=== PATIENT | male | born 1990 | race Caucasian/White ===

== ENCOUNTER 2018-04-13 12:14 | Observation (INO) | payer OTHER ==
[2018-04-13 12:18] VITALS: BMI 20.9
[2018-04-13 13:01] LABS: BASO # 0.2 K/uL (0.0-0.2); EOS # 0.2 K/uL (0.0-0.7); EOS % 2.4 % (0.0-4.0); LYMPH # 3.7 K/uL (1.0-4.3); MEAN CELL VOLUME 82.4 fL (80.0-94.0); MEAN CORPUSCULAR HEMOGLOBIN 27.8 pg (27.0-31.0); MEAN CORPUSCULAR HGB CONC 33.7 g/dL (33.0-37.0); MEAN PLATELET VOLUME 9.6 fL (7.2-11.7); MONO # 0.5 K/uL (0.0-0.8); MONO % 6.5 % (0.0-10.0); NEUT # 3.7 K/uL (1.8-7.0); NEUT % 44.1 % (50.0-75.0); RBC 5.39 Mil/uL (4.40-5.90); RED CELL DISTRIBUTION WIDTH 12.9 % (11.5-14.5); WHITE BLOOD COUNT 8.3 K/uL (4.8-10.8)
[2018-04-13 13:15] LABS: ALB/GLOB RATIO 1.6 (1.0-2.1); ALBUMIN 4.9 g/dL (3.5-5.0); ALT/SGPT 51 U/L (21-72); AST/SGOT 39 U/L (17-59); BLOOD UREA NITROGEN 16 mg/dL (9-20); CALCIUM 9.7 mg/dl (8.6-10.4); GFR NON-AFRICAN AMERICAN > 60
--- NOTE | 2018-04-13 13:17 | C.PDOC ---
History Of Present Illness 27 y/o male presents to ED s/p seizure like activity witnessed by friends prior to arrival. As per friends patient was heating up food and started to have trouble speaking, started shaking and foaming from mouth. Patient foaming and shaking on floor that lasted 5 minutes followed by patient being confused for another 10 minutes. At ED patient is at Postictal stage and denies substance abuse, bowel/bladder incontinence, tongue biting or any other complaints at this time. Time Seen by Provider: 04/13/18 12:21 Chief Complaint (Nursing): Seizure History Per: Patient History/Exam Limitations: no limitations Recent Seizure Activity Began: Just Before Arrival Number Of Seizures: One Length Of Seizures (Duration): Minutes Past Medical History Reviewed: Historical Data, Nursing Documentation, Vital Signs Vital Signs: Last Vital Signs Temp 98.6 F 04/13/18 14:58 Pulse 83 04/13/18 14:58 Resp 11 L 04/13/18 14:58 BP 115/66 04/13/18 14:58 Pulse Ox 98 04/13/18 15:09 - Medical History PMH: No Chronic Diseases Surgical History: No Surg Hx Family History: States: No Known Family Hx - Social History Hx Alcohol Use: Yes Hx Substance Use: No - Immunization History Hx Tetanus Toxoid Vaccination: Yes Hx Influenza Vaccination: No Hx Pneumococcal Vaccination: No Review Of Systems Except As Marked, All Systems Reviewed And Found Negative. Neurological: Positive for: Seizures Physical Exam - Physical Exam Appears: Non-toxic, No Acute Distress Skin: Warm, Dry, No Rash Head: Atraumatic, Normacephalic Eye(s): bilateral: Normal Inspection Oral Mucosa: Moist Neck: Supple Cardiovascular: Rhythm Regular Respiratory: Normal Breath Sounds, No Rales, No Rhonchi, No Wheezing Gastrointestinal/Abdominal: Soft, No Tenderness, No Guarding, No Rebound Extremity: Normal ROM, Capillary Refill (<2 seconds) Neurological/Psych: Oriented x3, Normal Speech, Normal Cognition, Normal Motor, Normal Sensation ED Course And Treatment - Laboratory Results Result Diagrams: 04/13/18 12:55 04/13/18 12:55 ECG Rhythm: Sinus Rhythm Interpretation Of ECG: Normal itnervals, Normal access. No ST/T wave changes Rate From EC O2 Sat by Pulse Oximetry: 98 (RA) Pulse Ox Interpretation: Normal Medical Decision Making Medical Decision Making: Assessment: New onset Seizure Progress: D/w Dr. Vilchis who saw patient at bedside, instructs to admit patient for new onset seizure and advise to start Keppra 100mg now, order MRI with and without contrast. Admitted patient to Dr. Davis for med surg obs, medical technologist generalist notified. Disposition Discussed With : Khari Davis Jr. Doctor Will See Patient In The: Hospital Counseled Patient/Family Regarding: Studies Performed, Diagnosis - Disposition Disposition: HOSPITALIZED Disposition Time: 15:09 Condition: FAIR Forms: [employer] (Malay) - Clinical Impression Clinical Impression: Seizure - Scribe Statement The provider has reviewed the documentation as recorded by the Scribe Bo Alba All medical record entries made by the Scribe were at my direction and personally dictated by me. I have reviewed the chart and agree that the record accurately reflects my personal performance of the history, physical exam, medical decision making, and the department course for this patient. I have also personally directed, reviewed, and agree with the discharge instructions and disposition.
[2018-04-13 13:38] LABS: URINE BILIRUBIN NEGATIVE (NEGATIVE); URINE CLARITY Clear (Clear); URINE COLOR Yellow (YELLOW); URINE GLUCOSE (UA) NORMAL (Normal); URINE LEUKOCYTE ESTERASE NEG Leu/uL (Negative); URINE PROTEIN NEGATIVE (NEGATIVE); URINE UROBILINOGEN NORMAL mg/dL (0.2-1.0)
[2018-04-13 13:59] LABS: BARBITURATES, UR NEGATIVE (NEGATIVE); BENZODIAZEPINES, UR NEGATIVE (NEGATIVE); OPIATES, UR NEGATIVE (NEGATIVE); PHENCYCLIDINE, UR NEGATIVE (NEGATIVE)
[2018-04-13 14:03] LABS: URINE BLOOD TRACE (NEGATIVE)
--- NOTE | 2018-04-13 14:08 | CT ---
Date of service: 04/13/2018 PROCEDURE: CT HEAD WITHOUT CONTRAST. HISTORY: seizure COMPARISON: No prior study available comparison TECHNIQUE: Axial computed tomography images were obtained through the head/brain without intravenous contrast. Radiation dose: Total exam DLP = 814.12 MGy-cm. This CT exam was performed using one or more of the following dose reduction techniques: Automated exposure control, adjustment of the mA and/or kV according to patient size, and/or use of iterative reconstruction technique. FINDINGS: HEMORRHAGE: No acute parenchymal, subarachnoid or extra-axial hemorrhage. BRAIN: No evidence of large acute infarct. No focal areas of abnormal attenuation seen within the substance of the brain. No significant atrophy. VENTRICLES: . Prominent cisterna magna. No obstructive hydrocephalus hydrocephalus. CALVARIUM: Unremarkable. PARANASAL SINUSES: Unremarkable as visualized. No significant inflammatory changes. MASTOID AIR CELLS: Unremarkable as visualized. No inflammatory changes. OTHER FINDINGS: None. IMPRESSION: No acute intracranial hemorrhage.
--- NOTE | 2018-04-13 16:36 | CP.PCM.HP ---
History of Present Illness - History of Present Illness History of Present Illness: CC: 3rd seizure in 2 years HPI: This 27 year old male presents to ED s/p seizure like activity witnessed by friends prior to arrival. As per friends patient was heating up food and started to have trouble speaking, started shaking and foaming from the mouth. This lasted for 5 minutes, followed by the patient being confused for another 10 minutes. Per the patient, he blacked out at the start of the seizure and does not recall anything until EMS arrived (roughly 15 minutes from start of seizure). He states that he's had 2 other seizures over the past 2 years, but they were different. He describes them as starring into space for 20-30 seconds , unaware of his surroundings. He only knows they happen because his friends and family have told him. In the ED, the patient was in a postictal state. He denies substance abuse, bowel/bladder incontinence, excessive caffeine intake, stimulant use, or any additional acute complaints. 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 PMD: none Review of Systems: -Gen: No fever, No chills, No headache, No lethargy, No weakness. -HEENT: No dizziness, No change in vision, No change in hearing, No sore throat , No dysphagia, No nasal congestion, No mucous. -Cardio: No chest pain, No palpitations, No lower extremity edema, No orthopnea. -Resp: No cough, No dyspnea, No hemoptysis, No wheezing, No pain on inspiration. -GI: No abdominal pain, No nausea/vomiting, No diarrhea/constipation, No hematochezia, No hematemesis. -: No dysuria, No urinary freq, No incontinence, No hematuria, No change in urinary stream. -MSK: No back pain, No muscle weakness, No radiating pain. -Skin: No itching, No rash, No lesions. -Neuro: +Confusion (mild), No numbness, No tingling, No focal weakness, No radicular pain, No syncope. -Psych: No anxiety, No depression, No H/I, No S/I, No hallucinations. Present on Admission - Present on Admission Any Indicators Present on Admission: No History of DVT/PE: No History of Uncontrolled Diabetes: No Past Patient History - Past Social History Smoking Status: Never Smoked - PSYCHIATRIC Hx Substance Use: No - SURGICAL HISTORY Hx Herniorrhaphy: Yes - ANESTHESIA Hx Anesthesia: Yes Hx Anesthesia Reactions: No Hx Malignant Hyperthermia: No Meds Allergies/Adverse Reactions: Allergies Allergy/AdvReac Type Severity Reaction Status Date / Time No Known Allergies Allergy Verified 04/13/18 12:17 Physical Exam - Additional Findings Additional findings: - Constitutional Appears: Non-toxic, No Acute Distress note: postictal state resolving - Head Exam Head Exam: ATRAUMATIC, NORMAL INSPECTION - Eye Exam Eye Exam: EOMI, Normal appearance - ENT Exam ENT Exam: Mucous Membranes Dry - Neck Exam Neck Exam: absent: Tenderness, Lymphadenopathy - Respiratory Exam Respiratory Exam: NORMAL BREATHING PATTERN. absent: Rales, Wheezes - Cardiovascular Exam Cardiovascular Exam: Regular Rate, +S1, +S2 - GI/Abdominal Exam GI & Abdominal Exam: Soft, Normal Bowel Sounds. absent: Tenderness - Extremities Exam Extremities Exam: Full ROM, Normal Inspection. absent: Pedal Edema, Tenderness - Back Exam Back Exam: NORMAL INSPECTION. absent: CVA tenderness (L), CVA tenderness (R) - Neurological Exam Neurological Exam: Alert, Awake, Oriented x3, CN2-12 intact. note: reflexes WNL throughout. - Psychiatric Exam Psychiatric exam: Normal Affect, Normal Mood - Skin Skin Exam: Dry, Intact, Normal Color, Warm Results - Vital Signs Recent Vital Signs: Last Vital Signs Temp 98.6 F 04/13/18 14:58 Pulse 83 04/13/18 14:58 Resp 11 L 04/13/18 14:58 BP 115/66 04/13/18 14:58 Pulse Ox 98 04/13/18 15:17 - Labs Result Diagrams: 04/13/18 12:55 04/13/18 12:55 Labs: Laboratory Results - last 24 hr 04/13/18 04/13/18 04/13/18 12:24 12:55 12:55 WBC 8.3 RBC 5.39 Hgb 15.0 Hct 44.5 MCV 82.4 MCH 27.8 MCHC 33.7 RDW 12.9 Plt Count 197 MPV 9.6 Neut % (Auto) 44.1 L Lymph % (Auto) 45.0 H [place] % (Auto) 6.5 Eos % (Auto) 2.4 Baso % (Auto) 2.0 Neut # (Auto) 3.7 Lymph # (Auto) 3.7 [place] # (Auto) 0.5 Eos # (Auto) 0.2 Baso # (Auto) 0.2 Sodium 145 Potassium 3.8 Chloride 104 Carbon Dioxide 22 Anion Gap 22 H BUN 16 Creatinine 0.9 Est GFR ( Amer) > 60 Est GFR (Non-Af Amer) > 60 POC Glucose (mg/dL) 132 H Random Glucose 130 H Calcium 9.7 Total Bilirubin 0.6 AST 39 ALT 51 Alkaline Phosphatase 74 Total Protein 8.0 Albumin 4.9 Globulin 3.1 Albumin/Globulin Ratio 1.6 Urine Color Urine Clarity Urine pH Ur Specific [place] Urine Protein Urine Glucose (UA) Urine Ketones Urine Blood Urine Nitrate Urine Bilirubin Urine Urobilinogen Ur Leukocyte Esterase Urine RBC (Auto) Urine Opiates Screen Urine Methadone Screen Ur Barbiturates Screen Ur Phencyclidine Scrn Ur Amphetamines Screen U Benzodiazepines Scrn U Oth Cocaine Metabols U Cannabinoids Screen Alcohol, Quantitative < 10 04/13/18 04/13/18 04/13/18 13:02 13:07 13:25 WBC RBC Hgb Hct MCV MCH MCHC RDW Plt Count MPV Neut % (Auto) Lymph % (Auto) [place] % (Auto) Eos % (Auto) Baso % (Auto) Neut # (Auto) Lymph # (Auto) [place] # (Auto) Eos # (Auto) Baso # (Auto) Sodium Potassium Chloride Carbon Dioxide Anion Gap BUN Creatinine Est GFR ( Amer) Est GFR (Non-Af Amer) POC Glucose (mg/dL) 97 103 Random Glucose Calcium Total Bilirubin AST ALT Alkaline Phosphatase Total Protein Albumin Globulin Albumin/Globulin Ratio Urine Color Yellow Urine Clarity Clear Urine pH 5.0 Ur Specific [place] 1.017 Urine Protein Negative Urine Glucose (UA) Normal Urine Ketones Negative Urine Blood Trace Urine Nitrate Negative Urine Bilirubin Negative Urine Urobilinogen Normal Ur Leukocyte Esterase Neg Urine RBC (Auto) 2 Urine Opiates Screen Urine Methadone Screen Ur Barbiturates Screen Ur Phencyclidine Scrn Ur Amphetamines Screen U Benzodiazepines Scrn U Oth Cocaine Metabols U Cannabinoids Screen Alcohol, Quantitative 04/13/18 13:25 WBC RBC Hgb Hct MCV MCH MCHC RDW Plt Count MPV Neut % (Auto) Lymph % (Auto) [place] % (Auto) Eos % (Auto) Baso % (Auto) Neut # (Auto) Lymph # (Auto) [place] # (Auto) Eos # (Auto) Baso # (Auto) Sodium Potassium Chloride Carbon Dioxide Anion Gap BUN Creatinine Est GFR ( Amer) Est GFR (Non-Af Amer) POC Glucose (mg/dL) Random Glucose Calcium Total Bilirubin AST ALT Alkaline Phosphatase Total Protein Albumin Globulin Albumin/Globulin Ratio Urine Color Urine Clarity Urine pH Ur Specific [place] Urine Protein Urine Glucose (UA) Urine Ketones Urine Blood Urine Nitrate Urine Bilirubin Urine Urobilinogen Ur Leukocyte Esterase Urine RBC (Auto) Urine Opiates Screen Negative Urine Methadone Screen Negative Ur Barbiturates Screen Negative Ur Phencyclidine Scrn Negative Ur Amphetamines Screen Negative U Benzodiazepines Scrn Negative U Oth Cocaine Metabols Negative U Cannabinoids Screen Negative Alcohol, Quantitative Assessment & Plan - Assessment and Plan (Free Text) Assessment: Seizure -patient states that he had 2 prior seizures where he was "starring into space for 30 seconds" without recollection of his surrounding at that time. Neurology consult, Dr. Vilchis, f/u recs Keppra 1000mg IV given in ED Start Keppra 500mg PO BID Ativan 1mg IVP Q4H PRN seizure neuro checks q4H aspiration precautions f/u HIV, RPR, and AM labs EKG 04/13- no ST changes, NSR. see full report Head CT- negative, see full report. f/u MRI Prophylaxis SCDs heparin 5000u sc q12H pepcid 20mg po qd Case discussed with Dr. Davis - Date & Time Date: 04/13/18 Time: 16:35
[2018-04-13] MEDS ORDERED: Gadodiamide 287 MG/ML VIAL (15ML) IV ONE (16:41)
[2018-04-13 17:11] VITALS: RESP 20
--- NOTE | 2018-04-13 17:29 | MRI ---
Date of service: 04/13/2018 PROCEDURE: MRI BRAIN WITH AND WITHOUT CONTRAST HISTORY: Seizure COMPARISON: Comparison made with prior CT scan of brain earlier same day TECHNIQUE: Multiplanar, multisequence MR images of the brain were obtained with and without intravenous contrast enhancement. 12 cc Omniscan injected for this examination. FINDINGS: HEMORRHAGE: No acute parenchymal, subarachnoid or extra-axial hemorrhage. No evidence of hemosiderin deposition is identified on gradient echo weighted sequence. DWI: No evidence of an acute or early subacute infarction seen on diffusion imaging. BRAIN PARENCHYMA: No mass,mass effect or edema. No atrophy or chronic microvascular ischemic changes. ENHANCEMENT: No enhancing parenchymal nor extra-axial masses or collections. . VENTRICLES: No obstructive hydrocephalus. Re- demonstrated is prominent cisterna magna (greater than right. CRANIUM: Unremarkable. ORBITS: Grossly unremarkable. PARANASAL SINUSES/MASTOIDS: Clear VASCULAR SYSTEM: Visualized major vascular flow voids at skull base patent. OTHER FINDINGS: None . IMPRESSION: Unremarkable pre and post contrast enhanced MRI of the brain.
--- NOTE | 2018-04-13 17:38 | CARD ---
APPROVED REPORT Date of service: 04/13/2018 EKG Measurement Heart [id number] ID [id number] <Conclusion> Normal sinus rhythm Normal ECG
[2018-04-14 07:24] LABS: BASO # 0.2 K/uL (0.0-0.2); BASO % 2.4 % (0.0-2.0); EOS # 0.2 K/uL (0.0-0.7); EOS % 3.5 % (0.0-4.0); HEMOGLOBIN 14.6 g/dL (12.0-18.0); LYMPH # 2.3 K/uL (1.0-4.3); LYMPH % 33.3 % (20.0-40.0); MEAN CELL VOLUME 82.3 fL (80.0-94.0); MEAN CORPUSCULAR HEMOGLOBIN 28.2 pg (27.0-31.0); MEAN CORPUSCULAR HGB CONC 34.2 g/dL (33.0-37.0); MEAN PLATELET VOLUME 9.3 fL (7.2-11.7); MONO # 0.6 K/uL (0.0-0.8); MONO % 9.2 % (0.0-10.0); NEUT # 3.6 K/uL (1.8-7.0); NEUT % 51.6 % (50.0-75.0); NRBC % 0.1 % (0.0-2.0); RBC 5.19 Mil/uL (4.40-5.90); RED CELL DISTRIBUTION WIDTH 12.9 % (11.5-14.5); WHITE BLOOD COUNT 6.9 K/uL (4.8-10.8)
[2018-04-14 07:37] LABS: ALB/GLOB RATIO 1.4 (1.0-2.1); ALBUMIN 4.7 g/dL (3.5-5.0); ALT/SGPT 38 U/L (21-72); AST/SGOT 33 U/L (17-59); BLOOD UREA NITROGEN 16 mg/dL (9-20); CALCIUM 9.8 mg/dl (8.6-10.4); GFR NON-AFRICAN AMERICAN > 60
--- NOTE | 2018-04-14 16:56 | CP.PCM.DIS ---
Provider - Provider Date of Admission: 04/13/18 15:09 Attending physician: Khari Davis Jr, MD Primary care physician: Dr. Phi Davis Consults: Neurology: Dr. Vilchis Time Spent in preparation of Discharge (in minutes): 45 Diagnosis - Discharge Diagnosis (1) Seizure Status: Acute Hospital Course - Lab Results Lab Results: Most Recent Lab Values WBC 6.9 K/uL (4.8-10.8) 04/14/18 07:16 RBC 5.19 Mil/uL (4.40-5.90) 04/14/18 07:16 Hgb 14.6 g/dL (12.0-18.0) 04/14/18 07:16 Hct 42.7 % (35.0-51.0) 04/14/18 07:16 MCV 82.3 fL (80.0-94.0) 04/14/18 07:16 MCH 28.2 pg (27.0-31.0) 04/14/18 07:16 MCHC 34.2 g/dL (33.0-37.0) 04/14/18 07:16 RDW 12.9 % (11.5-14.5) 04/14/18 07:16 Plt Count 196 K/uL (130-400) 04/14/18 07:16 MPV 9.3 fL (7.2-11.7) 04/14/18 07:16 Neut % (Auto) 51.6 % (50.0-75.0) 04/14/18 07:16 Lymph % (Auto) 33.3 % (20.0-40.0) 04/14/18 07:16 [place] % (Auto) 9.2 % (0.0-10.0) 04/14/18 07:16 Eos % (Auto) 3.5 % (0.0-4.0) 04/14/18 07:16 Baso % (Auto) 2.4 % (0.0-2.0) H 04/14/18 07:16 Neut # (Auto) 3.6 K/uL (1.8-7.0) 04/14/18 07:16 Lymph # (Auto) 2.3 K/uL (1.0-4.3) 04/14/18 07:16 [place] # (Auto) 0.6 K/uL (0.0-0.8) 04/14/18 07:16 Eos # (Auto) 0.2 K/uL (0.0-0.7) 04/14/18 07:16 Baso # (Auto) 0.2 K/uL (0.0-0.2) 04/14/18 07:16 APTT 33 SECONDS (21-34) 04/14/18 07:16 Sodium 143 mmol/L (132-148) 04/14/18 07:16 Potassium 4.1 mmol/L (3.6-5.2) 04/14/18 07:16 Chloride 103 mmol/L (98-107) 04/14/18 07:16 Carbon Dioxide 25 mmol/L (22-30) 04/14/18 07:16 Anion Gap 19 (10-20) 04/14/18 07:16 BUN 16 mg/dL (9-20) 04/14/18 07:16 Creatinine 0.9 mg/dL (0.8-1.5) 04/14/18 07:16 Est GFR ( Amer) > 60 04/14/18 07:16 Est GFR (Non-Af Amer) > 60 04/14/18 07:16 POC Glucose (mg/dL) 94 mg/dL (65-110) 04/14/18 12:18 Random Glucose 108 mg/dL (75-110) 04/14/18 07:16 Calcium 9.8 mg/dl (8.6-10.4) 04/14/18 07:16 Phosphorus 5.1 mg/dL (2.5-4.5) H 04/14/18 07:16 Magnesium 2.1 mg/dL (1.6-2.3) 04/14/18 07:16 Total Bilirubin 0.7 mg/dL (0.2-1.3) 04/14/18 07:16 AST 33 U/L (17-59) 04/14/18 07:16 ALT 38 U/L (21-72) 04/14/18 07:16 Alkaline Phosphatase 69 U/L (38-126) 04/14/18 07:16 Total Protein 8.0 g/dL (6.3-8.3) 04/14/18 07:16 Albumin 4.7 g/dL (3.5-5.0) 04/14/18 07:16 Globulin 3.4 gm/dL (2.2-3.9) 04/14/18 07:16 Albumin/Globulin Ratio 1.4 (1.0-2.1) 04/14/18 07:16 Urine Color Yellow (YELLOW) 04/13/18 13:25 Urine Clarity Clear (Clear) 04/13/18 13:25 Urine pH 5.0 (5.0-8.0) 04/13/18 13:25 Ur Specific [place] 1.017 (1.003-1.030) 04/13/18 13:25 Urine Protein Negative mg/dL (NEGATIVE) 04/13/18 13:25 Urine Glucose (UA) Normal mg/dL (Normal) 04/13/18 13:25 Urine Ketones Negative mg/dL (NEGATIVE) 04/13/18 13:25 Urine Blood Trace (NEGATIVE) 04/13/18 13:25 Urine Nitrate Negative (NEGATIVE) 04/13/18 13:25 Urine Bilirubin Negative (NEGATIVE) 04/13/18 13:25 Urine Urobilinogen Normal mg/dL (0.2-1.0) 04/13/18 13:25 Ur Leukocyte Esterase Neg [place]/uL (Negative) 04/13/18 13:25 Urine RBC (Auto) 2 /hpf (0-3) 04/13/18 13:25 Urine Opiates Screen Negative (NEGATIVE) 04/13/18 13:25 Urine Methadone Screen Negative (NEGATIVE) 04/13/18 13:25 Ur Barbiturates Screen Negative (NEGATIVE) 04/13/18 13:25 Ur Phencyclidine Scrn Negative (NEGATIVE) 04/13/18 13:25 Ur Amphetamines Screen Negative (NEGATIVE) 04/13/18 13:25 U Benzodiazepines Scrn Negative (NEGATIVE) 04/13/18 13:25 U Oth Cocaine Metabols Negative (NEGATIVE) 04/13/18 13:25 U Cannabinoids Screen Negative (NEGATIVE) 04/13/18 13:25 Alcohol, Quantitative < 10 mg/dl (0-10) 04/13/18 12:55 HIV 1&2 Antibody Screen Negative (NEGATIVE) 04/14/18 07:16 - Hospital Course Hospital Course: HPI: This 27 year old male presents to ED s/p seizure like activity witnessed by friends prior to arrival. As per friends patient was heating up food and started to have trouble speaking, started shaking and foaming from the mouth. This lasted for 5 minutes, followed by the patient being confused for another 10 minutes. Per the patient, he blacked out at the start of the seizure and does not recall anything until EMS arrived (roughly 15 minutes from start of seizure). He states that he's had 2 other seizures over the past 2 years, but they were different. He describes them as starring into space for 20-30 seconds , unaware of his surroundings. He only knows they happen because his friends and family have told him. In the ED, the patient was in a postictal state. He denies substance abuse, bowel/bladder incontinence, excessive caffeine intake, stimulant use, or any additional acute complaints. Briefly, pt was admitted after a witnessed seizure like activity. Ct scan of head on admission was normal. Patient was started on Keppra PO BID and Ativan IV prn. Neurology, Dr. Vilchis was consulted. Patient remained stable and had no further seizure like activity. Patient was cleared by neurology for discharge. Per neurology, patient will benefit from outpatient EEG. Patient was deemed stable for discharge per Dr. Davis. Patient is stable for discharge per Dr. Davis Patient is to follow up with primary care doctor upon discharge. If he does not have one, a referral for Dr. Davis is provided. Patient is to follow up with neurologist, Dr. Domitila Vilchis upon discharge on April 30 2018. Referral is provided. Please call office to confirm appointment. Patient is discharged on Depakote 500 mg PO BID per neurology recommendations. Patient does not drive. If symptoms worsen please return to ED. - Date & Time of H&P Date of H&P: 04/14/18 Time of H&P: 16:52 Discharge Exam - Head Exam Head Exam: ATRAUMATIC, NORMOCEPHALIC - Eye Exam Eye Exam: EOMI, PERRL - ENT Exam ENT Exam: Mucous Membranes Moist - Respiratory Exam Respiratory Exam: Clear to PA & Lateral, NORMAL BREATHING PATTERN. absent: Rales, Rhonchi, Wheezes - Cardiovascular Exam Cardiovascular Exam: REGULAR RHYTHM, +S1, +S2. absent: Diastolic murmur, Gallop , Rubs, Systolic Murmur - GI/Abdominal Exam GI & Abdominal Exam: Normal Bowel Sounds, Soft, Unremarkable. absent: Distended , Firm, Guarding, Rigid, Tenderness - Extremities Exam Additional comments: no edema or tenderness b/l - Neurological Exam Neurological exam: Alert, CN II-XII Intact, Oriented x3 - Psychiatric Exam Psychiatric exam: Normal Affect, Normal Mood - Skin Skin Exam: Dry, Intact, Normal Color, Warm Discharge Plan - Discharge Medications Prescriptions: Divalproex [Depakote ER] 500 mg PO BID #60 ter - Follow Up Plan Condition: FAIR Disposition: HOME/ ROUTINE Additional Instructions: Patient is stable for discharge per Dr. Davis Patient is to follow up with primary care doctor upon discharge. If he does not have one, a referral for Dr. Davis is provided. Patient is to follow up with neurologist, Dr. Domitila Vilchis upon discharge on April 30 2018. Referral is provided. Please call office to confirm appointment. Patient is discharged on Depakote 500 mg PO BID per neurology recommendations. Patient does not drive. If symptoms worsen please return to ED. Referrals: Robb Vilchis MD [Staff Provider] - Khari Davis Jr., MD [Medical Doctor] -
[2018-04-14 17:02] VITALS: BP 100/63; PULSE 69; TEMP 97.5; O2SAT 98
--- NOTE | 2018-04-15 11:28 | CP.PCM.CON ---
History of Present Illness - History of Present Illness History of Present Illness: 27 yr old male who i saw in the Er after he presented for a seizure, second in his lifetime earlier in the day. was with his friend, and had no sleep deprivation, recent cessation of ativan, or alcohol use. He does have a history of fatty liver, and drinking alcohol for many years, and recently, for many years has decreased his alcohol intake. Today, his friend states that he suddenly became tonic and had a prolonged generalized tonic clonic event, for which the patient is amnestic. He says that he had a prior event in [place] his [place] when he was not drinking alcohol for many months. He has not had an MRI brain or EEG done in his lifetime. There is no family history of epilepsy, nor is there a history of meningitis, encephalitis or head trauma. ROS: no headache, weakness, diarrhea, or aphasia. PMH/PSH: fatty liver. FH/SH: duplication specialist. Drinks once a month, no tobacco. unmarried. All: nkda. On exam: Normal neurological examination. Past Patient History - Past Social History Smoking Status: Never Smoked - PSYCHIATRIC Hx Substance Use: No - SURGICAL HISTORY Hx Herniorrhaphy: Yes - ANESTHESIA Hx Anesthesia: Yes Hx Anesthesia Reactions: No Hx Malignant Hyperthermia: No Meds Home Medications: Home Medication List Medication Instructions Recorded Confirmed Type Divalproex [Depakote ER] 500 mg PO BID #60 ter 04/14/18 Rx Allergies/Adverse Reactions: Allergies Allergy/AdvReac Type Severity Reaction Status Date / Time No Known Allergies Allergy Verified 04/13/18 12:17 Results - Vital Signs Recent Vital Signs: Last Vital Signs Temp 97.5 F L 04/14/18 15:00 Pulse 69 04/14/18 15:00 Resp 20 04/14/18 15:00 BP 100/63 04/14/18 15:00 Pulse Ox 98 04/14/18 15:00 - Labs Result Diagrams: 04/14/18 07:16 04/14/18 07:16 Labs: Laboratory Results - last 24 hr 04/14/18 04/14/18 04/14/18 07:16 12:18 16:42 POC Glucose (mg/dL) 94 106 RPR Nonreactive - Imaging and Cardiology MRI - head Status: Image reviewed by me, Report reviewed by me (MRI Brain: normal. No lesions noted. 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 I am concerned about the semiology of this event, and the fact that it was not truly an alcohol withdrawal seizure. I would recommend starting aed, and outpatient Video eeg. Thank you Dr. Vilchis
== END 2018-04-14 18:30 | disposition home or self-care (01) ==
LOC: C.ER 12:14 → C.9E 15:09 → C.6T 16:38
PROVIDERS: ADMIT Internal Medicine; ATTEND Internal Medicine
DX: R56.9 Unspecified convulsions (principal); K76.0 Fatty (change of) liver, not elsewhere classified
CPT/HCPCS: 36415; 70450; 70553; 80053; 80320; 80324; 80345; 80346; 80349; 80353; 80358; 80361; 81001; 82948; 83735; 83992; 84100; 85025; 85730; 86592; 86703; 93005; 99285; A9579; G0378; J1644